=== PATIENT | female | born 1960 | race Caucasian/White ===

== ENCOUNTER 2017-05-12 13:02 | Inpatient (IN) | payer OTHER ==
[2017-05-12 13:31] LABS: #Basophils 0.1 thou/uL (0.0-0.2); #Eosinphils 0.1 thou/uL (0.0-0.7); #Monocytes 0.7 thou/uL (0.11-0.59); #Neutrophils 11.9 thou/uL (1.40-6.50); %Basophils 0.7 % (0.0-1.0); %Eosinophils 0.7 % (0.0-10.0); %Lymphocytes 13.6 % (21.0-51.0); %Monocytes 4.8 % (0.0-10.0); Hematocrit 40.5 % (36.0-47.0); Mean Platelet Volume 5.4 fL (7.4-10.4); Red Blood Cell (RBC) Count 4.09 mill/uL (4.20-5.40); White Blood Cell (WBC) Count 14.8 thou/uL (4.8-10.8)
[2017-05-12 13:35] LABS: PTT 25.4 SEC (22.9-36.1)
[2017-05-12 13:36] LABS: Prothrombin Time 12.8 SEC (12.0-14.7)
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
[2017-05-12] MEDS ORDERED: Adacel (T-DAP) 0.5 ML VIAL ONE (13:42)
[2017-05-12] MEDS ORDERED: ceFAZolin Sodium 1 GM VIAL ONE (13:42)
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
[2017-05-12] MEDS ORDERED: Norepinephrine 8 MG/0.9% NS 250 ML ONE (14:03)
[2017-05-12] MEDS ORDERED: Phenylephrine 10 MG/NS 250 ML 0 ML ONE (14:03)
[2017-05-12] MEDS ORDERED: Fentanyl 100 MCG/2 ML VIAL ONE ×3 (14:03→21:04)
[2017-05-12 14:23] LABS: Lactic Acid - Sepsis 2.7 mmol/L (0.5-2.2)
[2017-05-12 14:27] LABS: ALT (SGPT) 60 U/L (8-55); AST (SGOT) 128 U/L (5-34); Acetaminophen Less than 6.0 mcg/mL (10.0-30.0); Alkaline Phosphatase 79 U/L (40-150); Anion Gap 19 mmol/L (10-20); BUN (Urea Nitrogen) 12 mg/dL (9.8-20.1); Bilirubin, Total 0.6 mg/dL (0.2-1.2); Calc. Creatinine Clearance 0 mL/min (70-130); Calcium 8.7 mg/dL (7.8-10.44); Carbon Dioxide 15 mmol/L (22-29); Chloride 100 mmol/L (98-107); Estimated GFR-MDRD Greater than 90; Globulin 3.3 g/dL (2.4-3.5); Protein, Total 7.2 g/dL (6.0-8.3); Salicylate Less than 8.0 mg/dL (15.0-30.0)
[2017-05-12] MEDS ORDERED: Lidocaine 1% PF 5 ML VIAL ONE ×2 (15:12→17:08)
--- NOTE | 2017-05-12 15:18 | RAD ---
TWO VIEW LEFT LEG: Clinical history: Post-traumatic pain. FINDINGS: There is a fracture deformity at the level of the ankle which is described on the concurrent left fo ot radiograph series. Fracture deformities involve the distal tibia and fibula. There is overlying s oft tissue irregularity compatible with laceration at the distal left leg. IMPRESSION: Fracture deformity of the distal tibia and fibula, as described on concurrent left foot radiographs. POS: [facility]
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
--- NOTE | 2017-05-12 15:26 | RAD ---
FRONTAL VIEW CHEST: Indication: Trauma, pain. FINDINGS: Left clavicular fracture with mild displacement and comminution present. There is mild patchy densit y at the left lateral lung base. No discrete pneumothorax. Mediastinal structures remain at midline. IMPRESSION: 1. Left clavicular fracture. 2. Mild left lateral basilar opacities. POS: [facility]
--- NOTE | 2017-05-12 15:55 | RAD ---
THREE VIEWS LEFT ANKLE: Indication: Post reduction. FINDINGS: Re-demonstration of fracture deformity of the distal tibia and fibula with associated disruption of the ankle joint. Overlying splint material does limit evaluation. There remains apex medial angulati on of the fracture sites as well as of the tibiotalar articulation. IMPRESSION: Splinted fractures of the left ankle. POS: [facility]
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
[2017-05-12 16:16] LABS: Bilirubin Negative (Negative); Blood, Urine Trace (Negative); Glucose, Urine (Dipstick) Negative (Negative); Ketone, Urine Negative (Negative); Nitrite Negative (Negative); Protein, Urine (Dipstick) Negative (Neg-Trace); Urobilinogen 0.2 mg/dL (0.2-1.0)
[2017-05-12] MEDS ORDERED: ISOVUE-370 76%-LOCM 1 ML ONE (16:19)
[2017-05-12 16:31] LABS: Bacteria/HPF None Seen HPF (None Seen); Hyaline Casts/LPF 0-3 HYALINE CAST LPF (0-3 Hyaline); RBC/HPF 0-3 HPF (0-3); Squamous Epithelial None Seen HPF (0-3); WBC/HPF 0-3 HPF (0-3)
[2017-05-12 16:42] LABS: Amphetamine Not Detected (NotDetected); Methadone Not Detected (NotDetected); Methamphetamine Not Detected (NotDetected)
[2017-05-12] MEDS ORDERED: Propofol 200 MG/20 ML VIAL ONE (17:08)
[2017-05-12] MEDS ORDERED: Succinylcholine Chloride 20 MG/ML 10 ml SYRINGE FS ONE (17:08)
[2017-05-12] MEDS ORDERED: PHENYLEPHRINE-NS 100 MCG/ML 10 ML SYRINGE ONE (17:08)
[2017-05-12] MEDS ORDERED: Dexamethasone 20 MG/5 ML VIAL ONE (17:08)
[2017-05-12] MEDS ORDERED: Glycopyrrolate 0.2 MG/ML 5 ML SYRINGE ONE (17:08)
[2017-05-12] MEDS ORDERED: Meperidine HCl/PF 25 MG/ML VIAL SLOW IVP PRN (19:39)
[2017-05-12] MEDS ORDERED: HYDROmorphone 2 MG/ML VIAL SLOW IVP PRN (19:39)
[2017-05-12] MEDS ORDERED: Promethazine HCl 25 MG/ML VIAL SLOW IVP PRN (19:39)
[2017-05-12] MEDS ORDERED: Ondansetron HCl/PF 4 MG/2 ML Vial IVP PRN ×2 (19:39→22:32)
[2017-05-12] MEDS ORDERED: Morphine Sulfate 2 MG/ML SYRINGE SLOW IVP PRN (22:32)
[2017-05-12] MEDS ORDERED: Promethazine HCl 25 MG/ML VIAL IM PRN (22:32)
[2017-05-12] MEDS ORDERED: Dextrose 5% in Water 1,000 ML IV PRN (22:32)
[2017-05-12] MEDS ORDERED: Ondansetron ODT 4 MG TAB PO PRN (22:32)
[2017-05-12] MEDS ORDERED: Insulin Regular 300 UNITS/3 ML VIAL SC PRN (22:32)
[2017-05-12] MEDS ORDERED: Dextrose 50% Abboject 50 ML SYRINGE SLOW IVP PRN (22:32)
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
[2017-05-12 22:43] VITALS: BMI 30.2
[2017-05-12] MEDS: Sodium Chloride 0.9% 1,000 ML IV SCH (22:59)
[2017-05-12] MEDS: Famotidine/PF 20 mg/2ml Vial SLOW IVP SCH (23:24)
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
[2017-05-13 05:06] LABS: #Lymphocytes 0.6 thou/uL (1.20-3.40); #Monocytes 0.8 thou/uL (0.11-0.59); #Neutrophils 7.7 thou/uL (1.40-6.50); %Eosinophils 0.1 % (0.0-10.0); %Lymphocytes 6.6 % (21.0-51.0); %Monocytes 8.7 % (0.0-10.0); Hematocrit 32.1 % (36.0-47.0); Mean Platelet Volume 5.8 fL (7.4-10.4); Red Blood Cell (RBC) Count 3.25 mill/uL (4.20-5.40); White Blood Cell (WBC) Count 9.1 thou/uL (4.8-10.8)
[2017-05-13 05:20] LABS: PTT 29.4 SEC (22.9-36.1); Prothrombin Time 14.2 SEC (12.0-14.7)
[2017-05-13 05:22] LABS: Anion Gap 12 mmol/L (10-20); BUN (Urea Nitrogen) 8 mg/dL (9.8-20.1); Calc. Creatinine Clearance 121 mL/min (70-130); Calcium 7.8 mg/dL (7.8-10.44); Carbon Dioxide 23 mmol/L (22-29); Chloride 99 mmol/L (98-107); Estimated GFR-MDRD Greater than 90
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
[2017-05-13] MEDS: Sodium Chloride 0.9% 1,000 ML IV SCH ×2 (08:23→15:19)
[2017-05-13] MEDS: Famotidine/PF 20 mg/2ml Vial SLOW IVP SCH ×2 (09:00→21:36)
--- NOTE | 2017-05-13 09:23 | RAD ---
LEFT ANKLE RADIOGRAPHS TWO VIEWS: 05/13/2017 PROVIDED CLINICAL HISTORY: Fracture. COMPARISON: Comparison is made with a study performed earlier on the same date. FINDINGS: Frontal and lateral spot fluoroscopic images demonstrate interval open reduction and internal fixati on of medial and lateral malleolar fractures. There is resultant improved alignment. IMPRESSION: As above. POS: [facility]
--- NOTE | 2017-05-13 09:28 | RAD ---
RIGHT ANKLE RADIOGRAPHS TWO VIEWS: 05/12/2017 PROVIDED CLINICAL HISTORY: Fracture. COMPARISON: Comparison is made with examination performed earlier on the same date. FINDINGS: Spot fluoroscopic frontal and lateral views demonstrate interval placement of cannulated, partially threaded screws transfixing the previously described medial malleolar fracture. IMPRESSION: As above. POS: [facility]
--- NOTE | 2017-05-13 09:29 | RAD ---
LEFT CLAVICLE RADIOGRAPHS TWO VIEWS: 05/12/2017 PROVIDED CLINICAL HISTORY: Fracture. COMPARISON: Chest radiograph dated 05/12/2017. FINDINGS: Frontal and oblique spot fluoroscopic images of the left clavicle are submitted. Interval postopera tive changes of plate and screw fixation of the previously described left clavicular fracture with r esultant improved alignment. IMPRESSION: As above. POS: [facility]
[2017-05-13] MEDS ORDERED: Rib Fracture Protocol PO SCH (09:45)
[2017-05-13] MEDS ORDERED: Melatonin 3 MG TAB PO PRN (10:04)
--- NOTE | 2017-05-13 10:18 | CT ---
PRELIMINARY REPORT/[facility]/EMERGENCY AFTER HOURS PROCEDURE: EXAM: CT Head Without Intravenous Contrast EXAM DATE/TIME: Exam ordered 05/13/2017 4:20 AM CLINICAL HISTORY: 57 years old, female; Signs and symptoms; Other: Possible ich TECHNIQUE: Axial computed tomography images of the head/brain without intravenous contrast. COMPARISON: No relevant prior studies available. FINDINGS: Brain: There is a tiny focus of increased density adjacent to the LEFT basal ganglia and few LEFT fr ontal sulci which probably is related to volume averaging and not intracranial hemorrhage. No signif icant white matter disease. No edema. Ventricles: Normal. No ventriculomegaly. Bones/joints: Normal. No acute fracture. Soft tissues: Normal. Sinuses: Unremarkable as visualized. No acute sinusitis. Mastoid air cells: Unremarkable as visualized. No mastoid effusion. IMPRESSION: There is a tiny focus of increased density adjacent to the LEFT basal ganglia and few LEFT frontal s ulci which probably is related to volume averaging and not intracranial hemorrhage. If there is cont inued clinical concern, followup CT head with thin slices may be performed. Thank you for allowing us to participate in the care of your patient. Dictated and Authenticated by: Bipin Weaver MD 05/13/2017 5:31 AM Central Time ([place] \T\ [place]) FINAL REPORT PROCEDURE: NONCONTRAST CT OF THE BRAIN: INDICATION: Followup possible intracranial hemorrhage. COMPARISON: Prior CT of the brain dated 05/12/17 at 1:20 p.m. FINDINGS: A small focus of increased density seen involving the sulcus and gyri of the left parietal lobe on t he comparison examination is no longer demonstrated. This focus of increased density may have been related to increased density of an adjacent vascular structures of the cortex versus a small amount of subarachnoid hemorrhage. No large amount of subarachnoid hemorrhage is evident. No hydrocephalu s is evident. Septum pellucidum and third ventricle are midline. Mastoid air cells are clear. Par anasal sinuses are clear. The skull is intact. IMPRESSION: Agree with the preliminary report provided. There is no overt evident to suggest the presence of ac finesse intracranial hemorrhage on the current examination. The small focus of increased density involv ing the left parietal region on the comparison examination is no longer identified. This may have b een artifactual and related to volume averaging; however, this may have also been related to increas ed density of an adjacent cortical vascular structure near this location. His also could have refle cted a small focus of subarachnoid hemorrhage that has intervally dispersed from the prior exam. POS: OFF
[2017-05-13] MEDS ORDERED: Acetaminophen 500 MG TAB PO SCH (12:00)
[2017-05-13] MEDS: traMADol HCl 50 MG TAB PO SCH ×3 (12:11→23:24)
[2017-05-13] MEDS ORDERED: Venlafaxine HCl XR 150 MG CAP PO SCH (12:30)
[2017-05-13] MEDS: Gabapentin 300 MG CAP PO SCH ×2 (15:18→21:35)
[2017-05-13] MEDS: Acetaminophen 325 MG TAB PO SCH ×2 (19:31→23:24)
[2017-05-13] MEDS ORDERED: Biotin [Biotin] 1 MG PO SCH (21:00)
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
[2017-05-13] MEDS: Cyclobenzaprine 10 MG TAB PO PRN (21:25)
[2017-05-13] MEDS: Docusate Sodium 100 MG/10 ML UDCUP PO SCH (21:25)
[2017-05-13] MEDS: Melatonin 3 MG TAB PO SCH (21:32)
[2017-05-13] MEDS: traZODone HCl 50 MG TAB PO SCH (21:35)
[2017-05-13] MEDS: Calcium Carbonate + Vit D 1 TAB PO SCH (21:35)
[2017-05-13] MEDS: Ubidecarenone 50 MG CAP PO SCH (21:35)
[2017-05-13] MEDS: Citrucel 500 MG TAB PO SCH (22:23)
[2017-05-14] MEDS: Sodium Chloride 0.9% 1,000 ML IV SCH ×3 (00:33→16:00)
[2017-05-14] MEDS: HYDROcodone/Acetaminophen 10/325 mg Tablet PO PRN ×4 (03:20→20:31)
[2017-05-14] MEDS: Acetaminophen 325 MG TAB PO SCH ×3 (05:14→18:18)
[2017-05-14] MEDS: traMADol HCl 50 MG TAB PO SCH ×3 (05:14→18:19)
[2017-05-14] MEDS: Famotidine/PF 20 mg/2ml Vial SLOW IVP SCH ×2 (09:00→20:32)
[2017-05-14] MEDS: Multivit, Therapeutic 1 TAB PO SCH (09:40)
[2017-05-14] MEDS: Gabapentin 300 MG CAP PO SCH ×3 (09:41→20:30)
[2017-05-14] MEDS: Calcium Carbonate + Vit D 1 TAB PO SCH ×2 (09:41→20:28)
[2017-05-14] MEDS: Docusate Sodium 100 MG/10 ML UDCUP PO SCH ×2 (09:42→20:33)
[2017-05-14] MEDS: Citrucel 500 MG TAB PO SCH ×2 (09:42→20:29)
[2017-05-14] MEDS: Milk Of Magnesia 30 ML UDCUP PO PRN (09:59)
[2017-05-14] MEDS: Venlafaxine HCl XR 150 MG CAP PO SCH (10:00)
[2017-05-14] MEDS: Cyclobenzaprine 10 MG TAB PO PRN ×2 (13:42→20:31)
[2017-05-14] MEDS: traZODone HCl 50 MG TAB PO SCH (20:28)
[2017-05-14] MEDS: Melatonin 3 MG TAB PO SCH (20:29)
[2017-05-14] MEDS: Ubidecarenone 50 MG CAP PO SCH (20:30)
[2017-05-15] MEDS: traMADol HCl 50 MG TAB PO SCH ×2 (01:22→05:42)
[2017-05-15] MEDS: Acetaminophen 325 MG TAB PO SCH ×2 (01:22→05:42)
[2017-05-15] MEDS: Sodium Chloride 0.9% 1,000 ML IV SCH ×2 (02:54→15:49)
[2017-05-15] MEDS: Cyclobenzaprine 10 MG TAB PO PRN ×2 (08:30→18:33)
[2017-05-15] MEDS: Calcium Carbonate + Vit D 1 TAB PO SCH ×2 (08:31→21:16)
[2017-05-15] MEDS: Citrucel 500 MG TAB PO SCH ×2 (08:31→21:12)
[2017-05-15] MEDS: Multivit, Therapeutic 1 TAB PO SCH (08:31)
[2017-05-15] MEDS: HYDROcodone/Acetaminophen 10/325 mg Tablet PO PRN (08:31)
[2017-05-15] MEDS: Gabapentin 300 MG CAP PO SCH ×3 (08:31→21:15)
[2017-05-15] MEDS: Venlafaxine HCl XR 150 MG CAP PO SCH (08:31)
[2017-05-15] MEDS: Docusate Sodium 100 MG/10 ML UDCUP PO SCH ×2 (08:32→21:17)
[2017-05-15] MEDS: Milk Of Magnesia 30 ML UDCUP PO PRN ×2 (08:40→21:29)
[2017-05-15] MEDS: HYDROcodone/Acetaminophen 10/325 mg Tablet PO SCH ×4 (10:39→21:24)
[2017-05-15] MEDS: Melatonin 3 MG TAB PO SCH (21:13)
[2017-05-15] MEDS: traZODone HCl 50 MG TAB PO SCH (21:15)
[2017-05-15] MEDS: Ubidecarenone 50 MG CAP PO SCH (21:16)
[2017-05-16] MEDS: HYDROcodone/Acetaminophen 10/325 mg Tablet PO SCH ×6 (01:33→22:05)
[2017-05-16] MEDS: Gabapentin 300 MG CAP PO SCH ×3 (09:41→20:54)
[2017-05-16] MEDS: Multivit, Therapeutic 1 TAB PO SCH (09:41)
[2017-05-16] MEDS: Calcium Carbonate + Vit D 1 TAB PO SCH ×2 (09:41→20:53)
[2017-05-16] MEDS: Venlafaxine HCl XR 150 MG CAP PO SCH (09:41)
[2017-05-16] MEDS: Enoxaparin Sodium 40 MG/0.4 ML SYRINGE SC SCH (09:41)
[2017-05-16] MEDS: Polyethylene Glycol 3350 17 GM Packet PO SCH (09:42)
[2017-05-16] MEDS: Citrucel 500 MG TAB PO SCH ×2 (10:18→20:55)
[2017-05-16] MEDS: Docusate Sodium 100 MG/10 ML UDCUP PO SCH ×2 (10:19→20:56)
[2017-05-16] MEDS: Cyclobenzaprine 10 MG TAB PO PRN ×2 (10:21→17:44)
[2017-05-16] MEDS ORDERED: Magnesium Citrate 300 ML BOT PO SCH (17:00)
[2017-05-16] MEDS: Ubidecarenone 50 MG CAP PO SCH (20:53)
[2017-05-16] MEDS: traZODone HCl 50 MG TAB PO SCH (20:57)
[2017-05-16] MEDS: Melatonin 3 MG TAB PO SCH (20:57)
[2017-05-17] MEDS: HYDROcodone/Acetaminophen 10/325 mg Tablet PO SCH ×5 (01:45→17:52)
[2017-05-17] MEDS: Cyclobenzaprine 10 MG TAB PO PRN (05:21)
[2017-05-17 06:47] LABS: #Basophils 0.1 thou/uL (0.0-0.2); #Eosinphils 0.2 thou/uL (0.0-0.7); #Lymphocytes 1.5 thou/uL (1.20-3.40); #Monocytes 0.8 thou/uL (0.11-0.59); #Neutrophils 4.1 thou/uL (1.40-6.50); %Basophils 0.8 % (0.0-1.0); %Eosinophils 2.8 % (0.0-10.0); %Lymphocytes 22.9 % (21.0-51.0); %Monocytes 12.2 % (0.0-10.0); Hematocrit 28.7 % (36.0-47.0); Mean Platelet Volume 6.2 fL (7.4-10.4); Red Blood Cell (RBC) Count 2.79 mill/uL (4.20-5.40); White Blood Cell (WBC) Count 6.6 thou/uL (4.8-10.8)
[2017-05-17 07:08] LABS: Anion Gap 11 mmol/L (10-20); BUN (Urea Nitrogen) 8 mg/dL (9.8-20.1); Calc. Creatinine Clearance 129 mL/min (70-130); Calcium 9.1 mg/dL (7.8-10.44); Carbon Dioxide 26 mmol/L (22-29); Estimated GFR-MDRD Greater than 90; Magnesium 2.1 mg/dL (1.6-2.6); Phosphorus 3.3 mg/dL (2.3-4.7)
[2017-05-17 07:58] LABS: Chloride 102 mmol/L (98-107)
[2017-05-17] MEDS: Venlafaxine HCl XR 150 MG CAP PO SCH (09:46)
[2017-05-17] MEDS: Gabapentin 300 MG CAP PO SCH ×2 (09:46→14:33)
[2017-05-17] MEDS: Multivit, Therapeutic 1 TAB PO SCH (09:46)
[2017-05-17] MEDS: Calcium Carbonate + Vit D 1 TAB PO SCH (09:47)
[2017-05-17] MEDS: Polyethylene Glycol 3350 17 GM Packet PO SCH (09:47)
[2017-05-17] MEDS: Enoxaparin Sodium 40 MG/0.4 ML SYRINGE SC SCH (09:47)
[2017-05-17] MEDS: Citrucel 500 MG TAB PO SCH (09:47)
[2017-05-17] MEDS: Docusate Sodium 100 MG/10 ML UDCUP PO SCH (09:55)
[2017-05-17] MEDS ORDERED: Nystatin 100,000 Units/mL UDCUP SSW SCH (13:00)
[2017-05-17 16:14] VITALS: BP 121/83; TEMP 98.5
[2017-05-17] MEDS ORDERED: Nystatin 500,000 UNITS/5 ML UDCUP SSW SCH (17:00)
[2017-05-17] MEDS: HYDROcodone/Acetaminophen 10/325 mg Tablet PO PRN (17:50)
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
== END 2017-05-17 18:58 | DRG 493 ==
LOC: ERS 13:02 → SDC 16:59 → CCU 21:43 → SURG B 05-13 17:23
PROVIDERS: ADMIT Surgery; ATTEND Surgery
PROC: 0QHH04Z Insertion of Internal Fixation Device into Left Tibia, Open Approach (ICD-10-PCS; principal; 2017-05-12)
PROC: 0QSG34Z Reposition Right Tibia with Internal Fixation Device, Percutaneous Approach (ICD-10-PCS; 2017-05-12)
PROC: 0PSB04Z Reposition Left Clavicle with Internal Fixation Device, Open Approach (ICD-10-PCS; 2017-05-12)
DX: S82.852B Displaced trimalleolar fracture of left lower leg, initial encounter for open fracture type I or II (principal); S22.050A Wedge compression fracture of T5-T6 vertebra, initial encounter for closed fracture; S22.20XA Unspecified fracture of sternum, initial encounter for closed fracture; S22.32XA Fracture of one rib, left side, initial encounter for closed fracture; S42.022A Displaced fracture of shaft of left clavicle, initial encounter for closed fracture; S82.51XA Displaced fracture of medial malleolus of right tibia, initial encounter for closed fracture; V49.9XXA Car occupant (driver) (passenger) injured in unspecified traffic accident, initial encounter; Z88.8 Allergy status to other drugs, medicaments and biological substances
CPT/HCPCS: 12002; 29515; 36415; 36416; 70450; 71010; 71260; 72125; 72170; 74177; 76001; 80048; 80053; 80306; 80307; 81003; 81015; 83605; 83735; 84100; 85025; 85610; 85730; 90471; 90715; 94640; 96361; 96365; 96375; 99292; C1713; C1769; G0390; G8978-GP-CM; G8979-GP-CK; G8987-GO-CK; G8988-GO-CJ; J0690; J1100; J1170; J1650; J2001; J2270; J2704; J3010; J7620; S0028

== ENCOUNTER 2017-06-18 13:00 | Outpatient (CLI) | payer OTHER ==
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
== END 2017-06-18 13:01 | disposition home or self-care (01) ==
LOC: TBSIIMAG 13:00
PROVIDERS: ATTEND Neurological Surgery
DX: M54.9 Dorsalgia, unspecified (principal); S22.050A Wedge compression fracture of T5-T6 vertebra, initial encounter for closed fracture
CPT/HCPCS: 72070

== ENCOUNTER 2017-07-23 12:59 | Outpatient (CLI) | payer OTHER ==
--- NOTE | 2017-07-23 16:52 | RAD ---
THORACIC SPINE THREE VIEWS: History: Follow up thoracic vertebrae. Comparison: 06-18-17, CT 05-12-17. FINDINGS: Mild wedging of the T5 vertebra is stable. The other thoracic vertebrae maintain height and alignment . No interval change noted. There are mild degenerative changes again seen with mild osteophytes. IMPRESSION: Mild wedging of the T5 vertebrae remains stable in appearance. POS: JAY
== END 2017-07-23 13:00 | disposition home or self-care (01) ==
LOC: TBSIIMAG 12:59
PROVIDERS: ATTEND Neurological Surgery
DX: S22.008A Other fracture of unspecified thoracic vertebra, initial encounter for closed fracture (principal)
CPT/HCPCS: 72070

== ENCOUNTER 2018-01-01 19:45 | Inpatient (IN) | payer OTHER ==
[2018-01-01] MEDS ORDERED: Ondansetron ODT 4 MG TAB ONE (21:20)
[2018-01-01 21:39] LABS: Anion Gap 20 mmol/L (10-20); BUN (Urea Nitrogen) 8 mg/dL (9.8-20.1); CK (CPK) 61 U/L (29-168); Calc. Creatinine Clearance 0 mL/min (70-130); Calcium 8.8 mg/dL (7.8-10.44); Carbon Dioxide 18 mmol/L (22-29); Chloride 94 mmol/L (98-107); Estimated GFR-MDRD 81; Glucose 161 mg/dL (70-105); Potassium 5.5 mmol/L (3.5-5.1); Sodium 126 mmol/L (136-145)
[2018-01-01 21:41] LABS: CKMB 1.4 ng/mL (0-6.6); Troponin I 0.242 ng/mL (< 0.028)
--- NOTE | 2018-01-01 22:06 | RAD ---
PORTABLE CHEST: 01/01/18 HISTORY: Fever. COMPARISON: 05/12/17 study. Heart size is within normal limits. Mediastinal structures are unremarkable. The lungs are clear of i nfiltrates. Postoperative change of the left clavicle are noted. IMPRESSION: No active intrathoracic disease. POS: [facility]
[2018-01-01 22:28] LABS: Bilirubin Small (Negative); Blood, Urine Small (Negative); Clarity CLOUDY (Clear); Glucose, Urine (Dipstick) Negative (Negative); Leukocyte Moderate (Negative); Nitrite Positive (Negative); Protein, Urine (Dipstick) 100 mg/dL (Neg-Trace); Specific Gravity, Urine 1.018 (1.002-1.036); pH, Urine 6.5 (5.0-9.0)
[2018-01-01 22:30] LABS: Bacteria/HPF Rare-Few HPF (None Seen); Hyaline Casts/LPF 7-10 HYALINE CAST LPF (0-3 Hyaline); Pathc Cast-AUWi Flag 0.58 (0-2.49); Squamous Epithelial 0-3 HPF (0-3)
[2018-01-01] MEDS ORDERED: Acetaminophen 500 MG TAB ONE (23:23)
[2018-01-01] MEDS ORDERED: Melatonin 3 MG TAB PO SCH (23:45)
[2018-01-01] MEDS ORDERED: Clopidogrel Bisulfate 75 MG TAB PO SCH (23:45)
[2018-01-01] MEDS ORDERED: traZODone HCl 150 MG TAB PO SCH (23:45)
[2018-01-01 23:47] LABS: Lactic Acid 1.6 mmol/L (0.5-2.2)
[2018-01-01 23:50] LABS: Magnesium 2.1 mg/dL (1.6-2.6); Phosphorus 3.1 mg/dL (2.3-4.7)
[2018-01-01 23:54] LABS: Hemoglobin 13.7 g/dL (12.0-16.0); Mean Corpuscular HGB CONC 33.5 g/dL (32.0-36.0); Mean Corpuscular Hemoglobin 33.5 pg (27.0-31.0); Mean Platelet Volume 6.5 fL (7.4-10.4); Platelet Count 138 thou/uL (130-400); Red Blood Cell (RBC) Count 4.08 mill/uL (4.20-5.40); White Blood Cell (WBC) Count 28.9 thou/uL (4.8-10.8)
[2018-01-02 00:07] LABS: Band 22 % (5-11); Lymphocytes 4 % (21-51); MDiff Complete? YES; Monocytes 6 % (0-10); Neutrophil 68 % (42-75)
[2018-01-02 01:01] LABS: Troponin I 0.209 ng/mL (< 0.028)
[2018-01-02] MEDS ORDERED: Ondansetron HCl/PF 4 MG/2 ML Vial IVP PRN (02:37)
[2018-01-02] MEDS ORDERED: Ondansetron ODT 4 MG TAB SL PRN (02:37)
[2018-01-02] MEDS ORDERED: Sodium Chloride 0.9% 1,000 ML IV SCH (02:45)
[2018-01-02] MEDS ORDERED: Senokot 8.6 MG TAB PO PRN (02:57)
[2018-01-02] MEDS ORDERED: Calcium Carbonate 500 MG ChewTAB PO PRN (02:57)
[2018-01-02] MEDS ORDERED: Acetaminophen 325 MG TAB PO PRN (02:57)
[2018-01-02] MEDS ORDERED: Nitroglycerin 0.4 MG TAB (25 Tab Bottle) PO PRN (02:57)
[2018-01-02] MEDS ORDERED: Meropenem 1 GM in Sodium Chloride 0.9% 100 ML IVPB SCH (03:00)
[2018-01-02] MEDS ORDERED: Simethicone Chewable 80 MG TAB PO PRN (03:02)
[2018-01-02] MEDS ORDERED: cloNIDine 0.1 MG TAB PO PRN (03:02)
[2018-01-02] MEDS ORDERED: Labetalol HCl 100 MG/20 ML VIAL SLOW IVP PRN (03:02)
[2018-01-02 03:23] VITALS: BMI 27.2
[2018-01-02] MEDS ORDERED: MEROPENEM 1 GM/50 ML 1 GM in Premix Bag 1 BAG IVPB SCH ×2 (03:45→11:30)
[2018-01-02] MEDS: Sodium Chloride 0.9% 1,000 ML IV SCH ×3 (03:49→23:18)
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
[2018-01-02 05:00] LABS: Anion Gap 12 mmol/L (10-20); BUN (Urea Nitrogen) 6 mg/dL (9.8-20.1); Calc. Creatinine Clearance 106 mL/min (70-130); Calcium 7.8 mg/dL (7.8-10.44); Carbon Dioxide 21 mmol/L (22-29); Chloride 96 mmol/L (98-107); Estimated GFR-MDRD 90; Glucose 127 mg/dL (70-105); Potassium 3.9 mmol/L (3.5-5.1); Sodium 125 mmol/L (136-145)
[2018-01-02] MEDS ORDERED: HYDROcodone/Acetaminophen 10/325 mg Tablet PO PRN (05:02)
[2018-01-02] MEDS ORDERED: Cyclobenzaprine 10 MG TAB PO PRN (05:02)
[2018-01-02] MEDS: Vancomycin HCl 1 GM in Premix Bag 1 BAG IVPB SCH ×2 (05:23→17:28)
[2018-01-02] MEDS: Levothyroxine Sodium 50 MCG TAB PO SCH (05:30)
--- NOTE | 2018-01-02 07:28 | ULT ---
BILATERAL RENAL ULTRASOUND: Date: 01/02/18 HISTORY: Urinary tract infection. Evaluate for obstructive uropathy. Sepsis. COMPARISON: None. TECHNIQUE: Sagittal and transverse imaging of the kidneys is performed. FINDINGS: Right and left kidney have a normal cortical echotexture. Bilaterally, no hydronephrosis. Right kidney measures 4.1 x 4.6 x 11.0 cm. Left kidney measures 5.4 x 11.3 x 4.9 cm. Urinary bladder is unremarkable. Normal mucosal appearance. Bladder volume is 247 cm2. Bilateral uret eral jets are identified. IMPRESSION: No hydronephrosis. POS: [facility]
[2018-01-02] MEDS: Venlafaxine HCl XR 150 MG CAP PO SCH (08:36)
[2018-01-02] MEDS: Famotidine 20 MG TAB PO SCH ×2 (08:37→21:20)
[2018-01-02] MEDS: DULoxetine 60 MG CAP PO SCH (08:37)
[2018-01-02] MEDS: pyridOXINE 50 MG (B6) TAB PO SCH (08:37)
[2018-01-02] MEDS: Saccharomyces boulardii 250 MG CAP PO SCH (08:39)
[2018-01-02] MEDS ORDERED: Docusate 100 MG CAP PO SCH (09:00)
[2018-01-02] MEDS: Docusate 100 MG CAP PO SCH ×2 (09:12→21:19)
[2018-01-02] MEDS: Polyethylene Glycol 3350 17 GM Packet PO SCH (09:12)
[2018-01-02] MEDS ORDERED: Clopidogrel Bisulfate 75 MG TAB ONE (09:22)
--- NOTE | 2018-01-02 17:43 | PDOC.PN ---
- Subjective Encounter Start Date: 01/02/18 Encounter Start Time: 17:40 Subjective: f/u for sepsis secondary to E. coli UTI and leukocytosis tx with Levaquin. -: States feeling ok compared to last 24h. No fever or chills. Appetite ok. -: Ambulated to restroom after disconnecting her IV completely. - Objective Resuscitation Status: Resuscitation Status FULL:Full Resuscitation MAR Reviewed: Yes Vital Signs & Weight: Vital Signs (12 hours) Temp Pulse Resp BP Pulse Ox 01/02/18 15:10 97.9 F 98 18 124/77 95 01/02/18 11:42 97.9 F 98 16 91/55 L 94 L 01/02/18 08:36 97.7 F 96 16 97 01/02/18 07:38 97.7 F 96 16 109/68 94 L Weight Admit Weight 158 lb 12.8 oz Weight 158 lb 12.8 oz I&O: 01/01/18 01/02/18 01/03/18 06:59 06:59 06:59 Intake Total 697 Balance 697 Result Diagrams: 01/02/18 04:21 01/02/18 04:21 Additional Labs: Microbiology 12/31/17 15:58 Urine clean catch Urine Culture - Final Escherichia coli Laboratory Tests 01/01/18 01/01/18 01/01/18 21:00 21:00 21:00 MCV Band Neuts % (Manual) Sodium 126 L Lactic Acid Phosphorus 3.1 Magnesium 2.1 Troponin I 0.242 H Cortisol 01/01/18 01/01/18 01/01/18 21:00 21:00 21:00 MCV 100.0 H Band Neuts % (Manual) 22 H Sodium Lactic Acid 1.6 Phosphorus Magnesium Troponin I Cortisol 30.80 01/02/18 00:00 MCV Band Neuts % (Manual) Sodium Lactic Acid Phosphorus Magnesium Troponin I 0.209 H Cortisol Laboratory Tests 01/01/18 21:00 WBC 28.9 H Radiology Reviewed by me: Yes (2D echo - EF 60-65%) EKG Reviewed by me: Yes (Tele - SR in 90's) Phys Exam - Physical Examination Constitutional: NAD HEENT: PERRLA, moist MMs, sclera anicteric, oral pharynx no lesions Neck: no nodes, no JVD, supple Respiratory: no wheezing S1, S2 Cardiovascular: RRR, no significant murmur, no rub, gallop Gastrointestinal: soft, non-tender, no distention, positive bowel sounds Musculoskeletal: no edema, pulses present Neurological: non-focal, normal sensation, moves all 4 limbs Psychiatric: normal affect, A&O x 3 Skin: no rash, normal turgor, cap refill <2 seconds Dx/Plan (1) Sepsis with acute organ dysfunction Code(s): A41.9 - SEPSIS, UNSPECIFIED ORGANISM; R65.20 - SEVERE SEPSIS WITHOUT SEPTIC SHOCK Status: Acute Comment: Secondary to E. coli UTI, continue Levaquin 750mg IV q24h, continue IVF's (2) E. coli UTI Code(s): N39.0 - URINARY TRACT INFECTION, SITE NOT SPECIFIED; B96.20 - UNSP ESCHERICHIA COLI THE CAUSE OF DISEASES CLASSD ELSWHR Status: Acute Comment: See #1 above, check PVR for incontinence (3) Demand ischemia of myocardium Code(s): I24.8 - OTHER FORMS OF ACUTE ISCHEMIC HEART DISEASE Status: Acute Comment: No ACS as demand-state in context of sepsis (4) Hyponatremia Code(s): E87.1 - HYPO-OSMOLALITY AND HYPONATREMIA Status: Acute Comment: ? chronic component, continue IV NS and repeat Na+ level in am (5) Alcohol abuse Code(s): F10.10 - ALCOHOL ABUSE, UNCOMPLICATED Status: Chronic Comment: Supportive mgmt, no evidence of withdrawal, Ativan 1mg po q4h prn withdrawal sx - Plan continue antibiotics, manager social work, out of bed/ambulate, DVT proph w/SCDs Stable overall -: Continue Levaquin 750mg IV q24 -: Continue IV NS @ 125ml/h another 24h then saline lock -: Ativan prn withdrawal sx -: AM lab: BMP, CBC * .
[2018-01-02 17:51] LABS: Band 6 % (5-11); Hemoglobin 12.4 g/dL (12.0-16.0); Lymphocytes 4 % (21-51); MDiff Complete? YES; Mean Corpuscular HGB CONC 32.1 g/dL (32.0-36.0); Mean Corpuscular Hemoglobin 33.6 pg (27.0-31.0); Mean Platelet Volume 6.4 fL (7.4-10.4); Monocytes 5 % (0-10); Neutrophil 85 % (42-75); PLT Morphology Comment Appears Decreased; Platelet Count 112 thou/uL (130-400)
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
[2018-01-02] MEDS ORDERED: Lorazepam 1 MG TAB PO PRN (18:16)
[2018-01-02] MEDS ORDERED: Phenazopyridine HCl 97.5 MG TABLET PO SCH (20:00)
[2018-01-02] MEDS ORDERED: Melatonin 3 MG TAB PO SCH (21:00)
[2018-01-02] MEDS ORDERED: traZODone HCl 50 MG TAB PO SCH (21:00)
[2018-01-02] MEDS ORDERED: Ubidecarenone 50 MG CAP PO SCH (21:00)
[2018-01-02] MEDS: Phenazopyridine HCl 97.5 MG TABLET PO SCH (21:20)
[2018-01-03 05:04] LABS: #Basophils 0.1 thou/uL (0.0-0.2); #Eosinphils 0.1 thou/uL (0.0-0.7); #Monocytes 1.2 thou/uL (0.11-0.59); #Neutrophils 11.8 thou/uL (1.40-6.50); %Basophils 0.5 % (0.0-1.0); %Eosinophils 0.9 % (0.0-10.0); %Monocytes 8.4 % (0.0-10.0); %Neutrophils 83.2 % (42.0-75.0); Hemoglobin 12.3 g/dL (12.0-16.0); Mean Corpuscular HGB CONC 32.1 g/dL (32.0-36.0); Mean Corpuscular Hemoglobin 33.1 pg (27.0-31.0); Mean Platelet Volume 6.2 fL (7.4-10.4); Platelet Count 129 thou/uL (130-400); RBC Distribution Width 11.9 % (11.5-14.5); Red Blood Cell (RBC) Count 3.71 mill/uL (4.20-5.40); White Blood Cell (WBC) Count 14.2 thou/uL (4.8-10.8)
[2018-01-03 05:24] LABS: Anion Gap 9 mmol/L (10-20); BUN (Urea Nitrogen) 7 mg/dL (9.8-20.1); Calc. Creatinine Clearance 110 mL/min (70-130); Carbon Dioxide 19 mmol/L (22-29); Chloride 109 mmol/L (98-107); Estimated GFR-MDRD Greater than 90; Glucose 104 mg/dL (70-105); Magnesium 2.3 mg/dL (1.6-2.6); Potassium 4.3 mmol/L (3.5-5.1); Sodium 133 mmol/L (136-145)
[2018-01-03 05:25] LABS: Troponin I 0.062 ng/mL (< 0.028)
[2018-01-03] MEDS: Levothyroxine Sodium 50 MCG TAB PO SCH (05:55)
[2018-01-03] MEDS: Sodium Chloride 0.9% 1,000 ML IV SCH ×2 (08:42→12:02)
[2018-01-03] MEDS: pyridOXINE 50 MG (B6) TAB PO SCH (08:43)
[2018-01-03] MEDS: DULoxetine 60 MG CAP PO SCH (08:43)
[2018-01-03] MEDS: Saccharomyces boulardii 250 MG CAP PO SCH (08:43)
[2018-01-03] MEDS: Docusate 100 MG CAP PO SCH (08:43)
[2018-01-03] MEDS: Venlafaxine HCl XR 150 MG CAP PO SCH (08:43)
[2018-01-03] MEDS: Polyethylene Glycol 3350 17 GM Packet PO SCH (08:44)
[2018-01-03] MEDS: Famotidine 20 MG TAB PO SCH (08:44)
[2018-01-03] MEDS: Phenazopyridine HCl 97.5 MG TABLET PO SCH ×2 (08:44→13:24)
[2018-01-03 11:45] VITALS: BP 174/95; TEMP 98.6
--- NOTE | 2018-01-03 12:46 | DIS ---
DATE OF ADMISSION: 01/01/2018 DATE OF DISCHARGE: 01/03/2018 DISCHARGE DIAGNOSES: 1. Sepsis with acute organ dysfunction, secondarily to Escherichia coli urinary tract infection. 2. Escherichia coli urinary tract infection. 3. Demand ischemia of myocardium secondary to sepsis. 4. Hyponatremia secondary to alcohol use. 5. Alcohol abuse. CONSULTATIONS: Dr. Mars Goldstein with Infectious Disease service. PERTINENT LAB AND X-RAY FINDINGS: Sodium ranged between 125-133. Lactic acid level 1.6. Magnesium level 2.3, troponin I ranged between 0.062-0.242, serum cortisol level 30.8. CBC showed a white bloo d cell count ranging between 14.2-28.9. Beta hydroxybutyrate level 0.76. Urine culture dated 2017 showed greater than 100,000 colonies of E. coli, pansensitive except for ampicillin and Unasyn. Blood cultures x2 from 01/01/2018 showed no growth to date. Portable chest x-ray dated 01/01/2018 s howed no acute cardiopulmonary process. Bilateral renal ultrasound dated 01/02/2018 showed no hydron ephrosis. A 2D transthoracic echocardiogram dated 01/02/2018 showed ejection fraction greater than 6 0%-65%. HOSPITAL COURSE: Patient was admitted after presenting with fever, chills, and urine culture positiv e for E. coli. The patient previously treated with Bactrim on an outpatient basis, presenting with b ilateral flank pain. The patient was noted with elevated white blood cell count in the 28,000 range and 22% bandemia. The patient was initiated on IV Levaquin 750 mg daily. The patient was evaluated by the Infectious Disease service with recommendations to continue IV antibiotic therapy and IV fluid hydration. The patient rapidly clinically improved with IV antibiotic therapy and fluid resuscitati on. Leukocytosis had improved by the time of discharge and patient remained afebrile throughout the hospital course. The patient tolerating regular oral intake, ambulating without assistance or diffic ulty and voiding appropriately. I have examined the patient at the time of discharge, discussed pert inent laboratory findings and follow up instructions at which point patient verbalizes agreement and understanding. The patient ready for discharge on 01/03/2018. DISCHARGE MEDICATIONS: 1. Levaquin 750 mg 1 tab p.o. daily. 2. Biotin 1 mg p.o. at bedtime. 3. Calcium with vitamin D3 one tablet p.o. daily. 4. Citrucel 2000 mg p.o. b.i.d. 5. Vitamin D3 two capsules p.o. daily. 6. Flexeril 10 mg p.o. t.i.d. p.r.n. 7. Cymbalta 60 mg p.o. daily. 8. [place] 10/325 mg 1 tab p.o. q.4-6 hours p.r.n. 9. Levaquin 750 mg 1 tab p.o. daily x7 days. 10. Levothyroxine 50 mcg p.o. daily. 11. Melatonin 10 mg p.o. at bedtime. 12. Multivitamin 1 tab p.o. daily. 13. Omeprazole 20 mg p.o. at bedtime. 14. AZO-Standard 97.5 mg p.o. after meals #10. 15. Trazodone 200 mg p.o. at bedtime. 16. Coenzyme Q10 of 30 mg p.o. at bedtime. 17. Effexor XR 300 mg p.o. daily. FOLLOWUP: The patient will follow up with her primary care provider, Dr. Mina Ugalde within 7 day s of discharge. CONDITION ON DISCHARGE: Stable. ACTIVITY: Ad kem. DIET: Heart healthy. CODE STATUS: FULL. DISPOSITION: Home, 01/03/2018. Total time preparing and coordinating discharge 35 minutes.
== END 2018-01-03 14:58 | disposition home or self-care (01) | DRG 872 ==
LOC: ERS 19:45 → ERHOLD 23:32 → 2SE 01-02 02:30 → 2NO 01-02 15:12
PROVIDERS: ADMIT Internal Medicine; ATTEND Internal Medicine
DX: A41.51 Sepsis due to Escherichia coli [E. coli] (principal); I24.8 Other forms of acute ischemic heart disease; N12 Tubulo-interstitial nephritis, not specified as acute or chronic; E87.1 Hypo-osmolality and hyponatremia; N18.2 Chronic kidney disease, stage 2 (mild); F32.9 Major depressive disorder, single episode, unspecified; E03.9 Hypothyroidism, unspecified; K21.9 Gastro-esophageal reflux disease without esophagitis; E78.5 Hyperlipidemia, unspecified; G47.00 Insomnia, unspecified; F10.20 Alcohol dependence, uncomplicated; Z79.899 Other long term (current) drug therapy; Z87.891 Personal history of nicotine dependence
CPT/HCPCS: 36415; 71045; 76770; 80048; 80053; 80061; 81001; 81003; 81015; 82010; 82533; 82550; 82553; 83605; 83735; 83930; 84100; 84443; 84484; 85025; 87040; 87077; 87086; 87186; 93005; 93306; 96361; 96365; J0696; J2185; J3370; J7050; Q0162

== ENCOUNTER 2021-09-08 15:43 | Emergency (ER) | payer BC, OTHER ==
[2021-09-08 17:11] LABS: #Basophils 0.1 thou/uL (0.0-0.2); #Eosinphils 0.3 thou/uL (0.0-0.7); #Monocytes 0.7 thou/uL (0.11-0.59); #Neutrophils 3.9 thou/uL (1.40-6.50); %Basophils 1.1 % (0.0-1.0); %Eosinophils 3.9 % (0.0-10.0); %Lymphocytes 29.3 % (21.0-51.0); %Monocytes 9.3 % (0.0-10.0); %Neutrophils 56.4 % (42.0-75.0); Hemoglobin 14.5 g/dL (12.0-16.0); Mean Corpuscular HGB CONC 34.7 g/dL (32.0-36.0); Mean Corpuscular Hemoglobin 32.8 pg (27.0-31.0); Mean Corpuscular Volume 94.6 fL (78.0-98.0); Mean Platelet Volume 5.6 fL (7.4-10.4); Platelet Count 230 thou/uL (130-400); RBC Distribution Width 11.2 % (11.5-14.5); Red Blood Cell (RBC) Count 4.41 mill/uL (4.20-5.40)
[2021-09-08] MEDS ORDERED: GUAIFENESIN SF SOLN 200 MG/10 ML UDCUP PO SCH (17:15)
[2021-09-08 17:33] LABS: ALT (SGPT) 32 U/L (8-55); AST (SGOT) 37 U/L (5-34); Albumin 3.8 g/dL (3.5-5.0); Alkaline Phosphatase 88 U/L (40-110); Anion Gap 15 mmol/L (10-20); BUN (Urea Nitrogen) 5 mg/dL (9.8-20.1); Bilirubin, Total 0.3 mg/dL (0.2-1.2); Calc. Creatinine Clearance 0 mL/min (70-130); Calcium 9.2 mg/dL (7.8-10.44); Carbon Dioxide 22 mmol/L (22-29); Chloride 94 mmol/L (98-107); Globulin 3.5 g/dL (2.4-3.5); Glucose 91 mg/dL (70-105); Potassium 4.3 mmol/L (3.5-5.1); Protein, Total 7.3 g/dL (6.0-8.3); Sodium 127 mmol/L (136-145)
[2021-09-09 17:38] LABS: SARS-CoV-2 PCR by NAA Not Detected (NotDetected)
== END 2021-09-08 17:38 | disposition home or self-care (01) ==
LOC: ERS 15:43
DX: R05.9 Cough, unspecified (principal); E03.9 Hypothyroidism, unspecified; F17.220 Nicotine dependence, chewing tobacco, uncomplicated; Z20.822 Contact with and (suspected) exposure to COVID-19; Z79.899 Other long term (current) drug therapy
CPT/HCPCS: 36415; 71045; 80053; 85025; 87804; U0003; U0005

== ENCOUNTER 2022-04-11 14:59 | Outpatient (CLI) | payer OTHER | END 2022-04-11 15:00 | disposition home or self-care (01) | LOC: BICMAMMO 14:59 | PROVIDERS: ATTEND Family Medicine | DX: Z12.31 Encounter for screening mammogram for malignant neoplasm of breast (principal) | CPT/HCPCS: 77063; 77067 ==

== ENCOUNTER 2023-05-09 13:52 | Outpatient (CLI) | payer OTHER | END 2023-05-09 13:53 | disposition home or self-care (01) | LOC: BICMAMMO 13:52 | PROVIDERS: ATTEND Family Medicine | DX: Z12.31 Encounter for screening mammogram for malignant neoplasm of breast (principal) | CPT/HCPCS: 77063; 77067 ==

== ENCOUNTER 2025-06-17 09:34 | Outpatient (CLI) | payer OTHER | END 2025-06-17 09:35 | disposition home or self-care (01) | LOC: BICMAMMO 09:34 | PROVIDERS: ATTEND Family Medicine | DX: Z13.21 Encounter for screening for nutritional disorder (principal); Z78.0 Asymptomatic menopausal state | CPT/HCPCS: 77063; 77067; 77080 ==